=== PATIENT | male | born 1975 | race Hispanic/Latino ===

== ENCOUNTER 2024-07-31 17:39 | Emergency (ER) | payer BC ==
--- OUTSIDE RECORDS SUMMARY | 2024-07-31 17:42 | XMS REPORT | Continuity of Care Document ---
Author Name Unknown Address [address] [place] [address] thconnect Address [address] [facility]. 1 [address] [place] [address] Care Team Providers Care Burning Supervisor Name Role Phone ARABELLA GELLER Attending Clinician Unavailable MENG Attending Clinician Unavailable Elian Attending Clinician Unavailable JAMEL TAMAYO Attending Clinician Unavailable BEAN LEY Attending Clinician Unavailable MENG Admitting Clinician Unavailable Elian Admitting Clinician Unavailable Social History Smoking Status Start Date Stop Date Source Never Smoker [facility] Medications Ordered Medication Name Filled Medication Name Start Date Stop Date Current Medication? Ordering Clinician Indication Dosage Frequency Signature (SIG) Comments Components Source levofloxaci n 500 mg tablet TAKE 1 TABLET BY MOUTH EVERY DAY levofloxaci n 500 mg tablet TAKE 1 TABLET BY MOUTH EVERY DAY 8 00:00: 00 No levofloxac in 500 mg tablet TAKE 1 TABLET BY MOUTH EVERY DAY [facility] rosuvastati n 10 mg tablet TAKE 1 TABLET BY MOUTH EVERY DAY rosuvastati n 10 mg tablet TAKE 1 TABLET BY MOUTH EVERY DAY No rosuvastat in 10 mg tablet TAKE 1 TABLET BY MOUTH EVERY DAY [facility] azithromyci n 500 mg tablet Take 1 tablet every day by oral route for 3 days. azithromyci n 500 mg tablet Take 1 tablet every day by oral route for 3 days. No 1 Q1D azithromyc in 500 mg tablet Take 1 tablet every day by oral route for [address] [facility] diclofenac sodium 75 mg tablet,monica yed release TAKE 1 TABLET BY MOUTH TWICE DAILY diclofenac sodium 75 mg tablet,monica yed release TAKE 1 TABLET BY MOUTH TWICE DAILY No diclofenac sodium 75 mg tablet,del ayed release TAKE 1 TABLET BY MOUTH TWICE DAILY [facility] orphenadrin e citrate ER 100 mg tablet,exte nded release TAKE 1 TABLET BY MOUTH TWICE DAILY orphenadrin e citrate ER 100 mg tablet,exte nded release TAKE 1 TABLET BY MOUTH TWICE DAILY No orphenadri ne citrate ER 100 mg tablet,ext ended release TAKE 1 TABLET BY MOUTH TWICE DAILY [facility] Immunizations Ordered Immunization Name Filled Immunization Name Date Status Comments Source Tdap - ML Tdap - ML Unknown Completed [facility] Vital Signs Vital Name Observation Time Observation Value Comments S magda Body Weight 2024-03-11 00:00:00 3250 [oz_av] [facility] BP Systolic 2024-03-11 00:00:00 125 mm[Hg] [facility] BP Diastolic 2024-03-11 00:00:00 86 mm[Hg] [facility] Height 2024-03-11 00:00:00 64 [in_i] [facility] BMI (Body Mass Index) 2024-03-11 00:00:00 34.9 kg/m2 [facility] Body Weight 2024-03-08 00:00:00 3288 [oz_av] [facility] BP Diastolic 2024-03-08 00:00:00 89 mm[Hg] [facility] BP Systolic 2024-03-08 00:00:00 130 mm[Hg] [facility] Encounters Start Date/Time End Date/Time Encounter Type Admission Type Attending [facility] Care Facility Care Department Encounter ID Source 2024-03-12 09:52:00 2024-03-12 09:52:00 Outpatient ARABELLA ASHBY [facility] [id number] [facility] 2024-03-11 13:53:00 2024-03-11 13:53:00 Outpatient ARABELLA ASHBY [facility] [id number] [facility] 2024-03-11 00:00:00 2024-03-11 00:00:00 Arabella Geller PA-C: [address] [facility], [address], [place] [address] , Ph. MMG [place] [facility] [id number] [facility] 2024-03-08 00:00:00 2024-03-08 00:00:00 Leo Bush MD: [address] [place] [address], [address], [place] [address] , Ph. MMG [place] [facility] [id number] [facility] 2022-02-14 10:36:00 2022-02-14 10:36:00 [facility]patient [facility] [id number] [facility] 2021-08-16 02:33:00 2021-08-16 02:33:00 [facility] [id number] [facility] 2010-04-09 08:10:00 2010-04-09 08:10:00 Outpatient JAMEL REYES [facility] [id number] [facility] 2010-03-12 09:50:00 2010-03-12 09:50:00 Outpatient JAMEL REYES [facility] [id number] [facility] 2004-01-12 23:13:00 2004-01-13 01:40:00 Emergency ER BEAN LEY [facility] [id number] [facility]
[2024-07-31] MEDS ORDERED: ONDANSETRON 4 MG/2 ML VIAL ONE (18:12)
[2024-07-31] MEDS ORDERED: KETOROLAC 30 MG/ML INJ ONE (18:13)
[2024-07-31] MEDS ORDERED: NA CHLORIDE 0.9% 1,000 ML ONE (18:13)
--- NOTE | 2024-07-31 18:19 | RAD REPORT ---
EXAMINATION: CT ABDOMEN AND PELVIS WITHOUT CONTRAST CLINICAL INDICATION: ABD PAIN TECHNIQUE: CT abdomen and pelvis was performed, without IV contrast, as per department protocol. Axia l, sagittal and coronal reconstructions were obtained. One or more of the following dose reduction techniques were used: Automated exposure control, adjustment of the mA and kV according to the patien t size, and iterative reconstruction. Unless otherwise specified, incidental findings do not require dedicated imaging follow-up. COMPARISON: No prior exam. FINDINGS: The lack of intravenous contrast limits the sensitivity of this exam for evaluation of solid visceral organs, vascular structures, and retroperitoneum. LOWER CHEST: The visualized lung bases are clear. LIVER:Normal in size and contour. No focal lesion. Cholecystectomy clips. SPLEEN: Normal size. No focal lesion. PANCREAS: No mass, ductal dilation, or italo-pancreatic fluid. ADRENALS: Normal; no mass. KIDNEYS AND URETERS: Normal size and contour. No hydronephrosis. URINARY BLADDER: Normal contour. GASTROINTESTINAL TRACT: No evidence of bowel obstruction, significant free fluid, free air or abscess . APPENDIX: Appendix not visualized, but no inflammatory changes in region of appendix. LYMPH NODES: No lymphadenopathy. MUSCULOSKELETAL: No acute or suspicious osseous abnormality. ADDITIONAL FINDINGS: None. IMPRESSION: No acute or concerning abnormalities in the abdomen or pelvis, with evaluation limited by lack of IV contrast.
[2024-07-31 18:33] LABS: Absolute Basophils 0.1 K/uL (0-0.5); Absolute Eosinophils 0.2 K/uL (0-0.5); Absolute Lymphocytes (CBC) 2.2 K/uL (0.7-4.9); Absolute Monocytes 0.4 K/uL (0.1-1.3); Absolute Neutrophil 3.4 K/uL (1.8-8.0); Basophils % 1.1 % (0-1.3); Eosinophils % 2.5 % (0-4.4); Hematocrit 44.9 % (39.6-49.0); Hemoglobin 15.2 g/dL (13.6-17.9); Lymphocytes % 34.6 % (15.3-44.8); MCH 28.8 pg (27.0-35.0); MCHC 33.8 g/dL (32.0-36.0); MCV 85.1 fL (80-100); MPV 8.5 fL (7.6-11.3); Monocytes % 6.8 % (3.3-12.3); Nucleated Red Blood Cells % 0.1 % (0-0); Platelets 226 thou/uL (152-406); RBC Red Blood Cell Count 5.28 M/uL (4.33-5.43); Red Cell Distribution Width 14.3 % (12.1-15.2)
[2024-07-31 18:42] LABS: Specific Gravity 1.026 (1.005-1.030); Sqamous Epithelial None Seen /HPF (None Seen); Urine Bacteria <20 /HPF (<20); Urine Bilirubin NEGATIVE (Negative); Urine Blood Negative (Negative); Urine Clarity Extremely Turbid (Clear); Urine Color Light-Yellow (Yellow); Urine Culture Reflex Order NOT NEEDED; Urine Glucose NEGATIVE (Negative); Urine Ketones NEGATIVE (Negative); Urine Microscopic Reflex YN ORDER UMIC; Urine Nitrite NEGATIVE (Negative); Urine Protein TRACE (Negative); Urine RBC <5 /HPF (None Seen); Urine Urobilinogen Normal (Normal); Urine WBC None Seen /HPF (<5)
[2024-07-31 18:50] LABS: Albumin 3.7 g/dL (3.4-5.0); Anion Gap 8.6 mEq/L (5.0-15.0); Bilirubin Total 0.3 mg/dL (0.2-1.0); Globulin 3.7 g/dL (2.3-3.5); Potassium 3.6 mEq/L (3.5-5.1); Protein, Total 7.4 g/dL (6.4-8.2)
--- NOTE | 2024-07-31 18:51 | RAD REPORT ---
EXAMINATION: ULTRASOUND DUPLEX OF SCROTUM AND TESTICLES CLINICAL INDICATION: Male, 49 years, PAIN TECHNIQUE: Duplex scan of the scrotal contents was performed including real-time color and spectral D oppler ultrasonography with arterial inflow and venous outflow. COMPARISON: No prior exam. FINDINGS: RIGHT TESTICLE AND EPIDIDYMIS: The right testicle is normal in size, measuring 4.0 x 2.1 cm. Normal, homogeneous echotexture with no focal lesion seen. The right epididymis is normal. Color Doppler flow in the right testicle is normal. LEFT TESTICLE AND EPIDIDYMIS: The left testicle is normal in size, measuring 4.0 x 2.3 cm. Normal, homogeneous echotexture with no focal lesion seen. The left epididymis is normal. Color Doppler flow in the left testicle is normal. ADDITIONAL FINDINGS: None. IMPRESSION: No acute or significant abnormalities.
--- NOTE | 2024-07-31 19:39 | ER ---
Nurse's Notes [facility] Name: Sim Bryson Age: 49 yrs Sex: Male : 1975 Arrival Date: 07/31/2024 Time: 17:39 Bed 8 Private MD: Diagnosis: Abdominal pain, unspecified;Right testicular pain Presentation: 07/31 17:47 Chief complaint: Patient states: Right testicular pain that radiates to abdomen s/s rs5 started yesterday. Coronavirus screen: At this time, the client does not indicate any symptoms associated with coronavirus-19. Ebola Screen: No symptoms or risks identified at this time. Initial Sepsis Screen: Does the patient meet any 2 criteria? No. Patient's initial sepsis screen is negative. Does the patient have a suspected source of infection? No. Patient's initial sepsis screen is negative. Risk Assessment: Do you want to hurt yourself or someone else? Patient reports no desire to harm self or others. Onset of symptoms was July 30, 2024. 17:47 Method Of Arrival: Ambulatory rs5 17:47 Acuity: LAMONT 3 rs5 Historical: - Allergies: 17:50 No Known Allergies; rs5 - PMHx: 17:50 None; rs5 - PSHx: 17:50 Cholecystectomy; rs5 - Immunization history:: Adult Immunizations up to date. - Infectious Disease History:: Denies. - Social history:: Smoking status: Patient denies any tobacco usage or history of. Screenin:26 [facility] ED Fall Risk Assessment (Adult) History of falling in the last 3 months, ld1 including since admission No falls in past 3 months (0 pts) Confusion or Disorientation No (0 pts) Intoxicated or Sedated No (0 pts) Impaired Gait No (0 pts) Mobility Assist Device Used No (0 pt) Altered Elimination No (0 pt) Score/Fall Risk Level 0 - 2 = Low Risk Oriented to surroundings, Maintained a safe environment, Educated pt \T\ family on fall prevention, incl call for assistance when getting out of bed, Assessed \T\ reinforced patient's understanding of fall precautions, Provided non-skid footwear, Hourly rounding (assess needs \T\ fall precautionary measures) done, Used ambulatory aids as needed (educated on \T\ assisted with), Used gait belt as appropriate. Abuse screen: Denies threats or abuse. Denies injuries from another. Nutritional screening: No deficits noted. Tuberculosis screening: No symptoms or risk factors identified. Assessment: 18:26 General: Appears in no apparent distress. uncomfortable, Behavior is calm, cooperative, ld1 appropriate for age. Pain: Complains of pain in groin and right femoral area Pain does not radiate. Pain currently is 8 out of 10 on a pain scale. Quality of pain is described as sharp, shooting, throbbing, Pain began suddenly, Is continuous. Neuro: Level of Consciousness is awake, alert, obeys commands, Oriented to person, place, time, situation. Cardiovascular: Capillary refill < 3 seconds Patient's skin is warm and dry. Respiratory: Airway is patent Respiratory effort is even, unlabored. GI: Abdomen is round non-distended, Bowel sounds present X 4 quads. Abd is soft Abd is non tender. : No signs and/or symptoms were reported regarding the genitourinary system. EENT: No signs and/or symptoms were reported regarding the EENT system. Derm: No signs and/or symptoms reported regarding the dermatologic system. Musculoskeletal: No signs and/or symptoms reported regarding the musculoskeletal system. 19:29 General: Appears in no apparent distress. comfortable, Behavior is. Pain: Denies pain. jj7 19:29 Reassessment: Patient is alert, oriented x 3, equal unlabored respirations, skin jj7 warm/dry/pink. ASSUMED CARE OF PT. PT SITTING IN BED. NO PAIN OR DISTRESS NOTED. VS STABLE. SONDRA FISHER JUST SPOKE WITH PT AND INFORMED THEM OF RESULTS AND THEY WILL BE DISCHARGED. Patient states feeling better. Patient states symptoms have improved. Vital Signs: 17:47 BP 145 / 99; Pulse 78; Resp 17; Temp 97.9(TE); Pulse Ox 99% ; Weight 91.17 kg; rs5 18:26 BP 137 / 90; Pulse 65; Resp 18; Pulse Ox 98% on R/A; Pain 8/10; ld1 19:33 BP 136 / 82; Pulse 67; Resp 17; Temp 97.8; Pulse Ox 99% ; Pain 0/10; jj7 18:26 Pain Scale: Adult ld1 19:33 Pain Scale: Adult jj7 ED Course: 17:41 Patient arrived in ED. mr 17:44 Ch[facility] Fisher [facility]-C [facility] kb 17:44 Saturnino Suarez MD is Attending Physician. kb 17:50 Triage completed. rs5 17:50 called Sapna with US. sp 18:10 CT Stone Protocol In Process Unspecified. EDMS 18:24 Mere Mesa, RN is Primary Nurse. ld1 18:25 Urinalysis w/ reflexes Sent. ld1 18:25 Lipase Sent. ld1 18:25 CMP Sent. ld1 18:25 CBC with Diff Sent. ld1 18:26 Patient has correct armband on for positive identification. Placed in gown. Bed in low ld1 position. Call light in reach. Side rails up X2. Pulse ox on. NIBP on. Door closed. Noise minimized. Warm blanket given. 18:26 No provider procedures requiring assistance completed. Inserted saline lock: 20 gauge ld1 in right antecubital area, using aseptic technique. Blood collected. Flushed with 10 mL NS. 18:45 US Scrotum Testicles In Process Unspecified. EDMS 19:29 Provided Education on: FOLLOW UP. jj7 19:48 IV discontinued, intact, bleeding controlled, No redness/swelling at site. Pressure jj7 dressing applied. Administered Medications: 18:24 Drug: NS 0.9% IV 1000 ml IV at 1000 ml once; to be given as a bolus over 60 minutes ld1 Route: IV; Rate: 1000 ml; Site: right antecubital; 19:33 Follow up: IV Status: Completed infusion jj7 18:25 Drug: Ondansetron IVP 4 mg IVP once; over 2 minutes Route: IVP; Site: right antecubital;ld1 18:25 Follow up: Response: No adverse reaction ld1 18:25 Drug: Ketorolac IVP 15 mg IVP once Route: IVP; Site: right antecubital; ld1 18:25 Follow up: Response: No adverse reaction ld1 Medication: 18:26 VIS not applicable for this client. ld1 Outcome: 19:38 Discharge ordered by . kb 19:48 Discharged to home ambulatory, with significant other, jj7 19:48 Condition: improved 19:48 Discharge instructions given to patient, Instructed on discharge instructions, follow up and referral plans. Demonstrated understanding of instructions, follow-up care, 19:49 Patient left the ED. jj7 Signatures: Dispatcher [employer] EDMS Chaya Fisher, LEARNING AND DEVELOPMENT INTERN-C LEARNING AND DEVELOPMENT INTERN-Ckb [facility] mr Mere Mesa, RN RN ld1 Miki Mac RN RN jj7 Kevon Lambert RN RN rs5
--- NOTE | 2024-07-31 19:39 | EDPHYS ---
Physician Documentation [facility] Name: Sim Bryson Age: 49 yrs Sex: Male : 1975 Arrival Date: 07/31/2024 Time: 17:39 Bed 8 Private MD: ED Physician Saturnino Suarez HPI: 07/31 20:20 This 49 yrs old Male presents to ER via Ambulatory with complaints of kb Abdominal Pain. 20:20 Pt is a 49-year-old male who presents for right testicular pain that radiates to right kb abdomen that has been intermittent since yesterday. Denies fever, nausea, vomiting, diarrhea, urinary symptoms. Denies swelling or redness to scrotum. States he feels like it is a hernia but is not sure.. Historical: - Allergies: 17:50 No Known Allergies; rs5 - PMHx: 17:50 None; rs5 - PSHx: 17:50 Cholecystectomy; rs5 - Immunization history:: Adult Immunizations up to date. - Infectious Disease History:: Denies. - Social history:: Smoking status: Patient denies any tobacco usage or history of. ROS: 20:19 Constitutional: As per HPI kb Exam: 20:19 Constitutional: This is a well developed, well nourished patient who is awake, alert, kb and in no acute distress. Head/Face: Normocephalic, atraumatic. ENT: Moist Mucous membranes Cardiovascular: Regular rate Respiratory: Respirations even and unlabored. No increased work of breathing. Talking in full sentences Abdomen/GI: Soft, non-tender. No distention Skin: Warm, dry with normal turgor. Normal color. MS/ Extremity: Pulses equal, no cyanosis. Neurovascular intact. Full, normal range of motion. Neuro: Awake and alert, GCS 15, oriented to person, place, time, and situation. Vital Signs: 17:47 BP 145 / 99; Pulse 78; Resp 17; Temp 97.9(TE); Pulse Ox 99% ; Weight 91.17 kg; rs5 18:26 BP 137 / 90; Pulse 65; Resp 18; Pulse Ox 98% on R/A; Pain 8/10; ld1 19:33 BP 136 / 82; Pulse 67; Resp 17; Temp 97.8; Pulse Ox 99% ; Pain 0/10; jj7 18:26 Pain Scale: Adult ld1 19:33 Pain Scale: Adult jj7 MDM: 17:44 Medical Screening Exam initiated kb 20:19 Differential diagnosis: non-specific abd pain, Testicular Torsion, Ureterolithiasis, kb urinary tract infection. Data reviewed: vital signs, nurses notes. Historians other than the Patient: Spouse/Significant Other: . Counseling: I had a detailed discussion with the patient and/or guardian regarding the historical points, exam findings, and any diagnostic results supporting the discharge/admit diagnosis, lab results, radiology results, the need for outpatient follow up, a family practitioner, a urologist, to return to the emergency department if symptoms worsen or persist or if there are any questions or concerns that arise at home. 07/31 17:49 Order name: CBC with Diff; Complete Time: 18:39 kb 07/31 17:49 Order name: CMP; Complete Time: 18:59 kb 07/31 17:49 Order name: Lipase; Complete Time: 18:59 kb 07/31 17:49 Order name: Urinalysis w/ reflexes; Complete Time: 18:49 kb 07/31 17:49 Order name: CT Stone Protocol; Complete Time: 18:20 kb 07/31 17:49 Order name: US Scrotum Testicles; Complete Time: 18:59 kb 07/31 17:49 Order name: IV Saline Lock; Complete Time: 18:25 kb 07/31 17:49 Order name: Labs collected and sent; Complete Time: 18:25 kb Administered Medications: 18:24 Drug: NS 0.9% IV 1000 ml IV at 1000 ml once; to be given as a bolus over 60 minutes ld1 Route: IV; Rate: 1000 ml; Site: right antecubital; 19:33 Follow up: IV Status: Completed infusion jj7 18:25 Drug: Ondansetron IVP 4 mg IVP once; over 2 minutes Route: IVP; Site: right antecubital;ld1 18:25 Follow up: Response: No adverse reaction ld1 18:25 Drug: Ketorolac IVP 15 mg IVP once Route: IVP; Site: right antecubital; ld1 18:25 Follow up: Response: No adverse reaction ld1 Disposition Summary: 07/31/24 19:38 Discharge Ordered Notes: Location: Home kb Condition: Stable kb Diagnosis - Abdominal pain, unspecified kb - Right testicular pain kb Followup: kb - With: Emergency Department - When: As needed - Reason: Worsening of condition Followup: kb - With: Private Physician - When: 2 - 3 days - Reason: Recheck today's complaints, Continuance of care, Re-evaluation by your physician Discharge Instructions: - Discharge Summary Sheet kb - Abdominal Pain, Adult, [id number] kb Forms: - Medication Reconciliation Form kb - Antibiotic Education kb - Prescription Opioid Use kb - Patient Portal Instructions kb - Leadership Thank You Letter kb Addendum: 08/05/2024 07:45 I was immediately available for consultation during this patient's visit. I did not e c2 personally see the patient or discuss the patient with the MICHELLE. . Signatures: Dispatcher [employer] EDChaya Christopher, RUY-C MOLD MAKER HELPER-Mere Rader RN RN ld1 Kevon Lambert RN RN rs5 Saturnino Suarez MD MD ec2 Miki Mac RN jj7 Corrections: (The following items were deleted from the chart) 07/31 17:49 17:49 Stone Protocol+CT.RAD.BRZ ordered. EDMS EDMS 17:49 17:49 Scrotum Testicles+US.RAD.BRZ ordered. EDMS EDMS
[2024-07-31 20:50] VITALS: BP 136/82; TEMP 97.8; O2SAT 99
== END 2024-07-31 19:49 | disposition home or self-care (01) ==
LOC: ER 17:39
DX: R10.9 Unspecified abdominal pain (principal); N50.811 Right testicular pain
CPT/HCPCS: 96361; 85025; 81001; 36415; 83690; 80053; 76377; 74176; 76870; 96375; 96374; 99284; J2405; J7030